=== PATIENT | female | born 1980 | race Two or more races ===

== ENCOUNTER 2016-12-12 14:55 | Emergency (ER) | payer OTHER ==
[~2016-12-12] VITALS: Ht 167.6 cm; Wt 54.4 kg
[~2016-12-12 14:55] MED LIST: NORCO 5-325 TA1 EACH ORAL
[2016-12-12] MEDS ORDERED: Lidocaine 1% MPF 10mg/ml 5ml IM ONE (16:15)
--- NOTE | 2016-12-12 16:15 | Emergency Room Report ---
History of Present Illness General Chief Complaint: Skin Rash/Abscess Source: Patient Present Illness HPI 36-year-old female presents to emergency Department complaining of 10/10 in severity left-sided hip pain, tenderness, swelling, erythema and increased temperature palpation x2 days. Patient reports recent injection heroin use at the site of her symptoms. Patient reports that she was recently seen in another ER for overdose of heroin. Patient denies nausea, vomiting, fevers, chills, chest pain, shortness of breath, dizziness or abdominal pain. 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 Pt states she is UTD with tetanus. Denies CP, Palpitations, LOC, AMS, dizziness, Changes in Vision, Sensation, paresthesias, or a sudden severe headache. Allergies: Coded Allergies: KETOROLAC (Unverified Allergy, Unknown, 06/05/15) PENICILLINS (Unverified Allergy, Unknown, 06/05/15) Patient History Past Medical History: see triage record Past Surgical History: none Pertinent Family History: none Social History: Reports: drug use - heroin Last Menstrual Period: 1999 Now: No Immunizations: UTD Reviewed Nursing Documentation: PMH: Agreed, PSxH: Agreed Nursing Documentation-PMH Past Medical History: No History, Except For Hx Cardiac Problems: Yes - ENDOCARDITIS Review of Systems All Other Systems: negative except mentioned in HPI Physical Exam Vital Signs Date Time Temp Pulse Resp B/P Pulse Ox O2 Delivery O2 Flow Rate FiO2 12/12/16 15:28 97.9 93 16 103/57 97 Room Air Sp02 EP Interpretation: reviewed, normal General Appearance: no apparent distress, alert, GCS 15, non-toxic Head: normocephalic, atraumatic Eyes: bilateral eye PERRL, bilateral eye normal inspection ENT: hearing grossly normal, normal pharynx, no angioedema, normal voice Neck: full range of motion, supple/symm/no masses Respiratory: chest non-tender, lungs clear, normal breath sounds, speaking full sentences Cardiovascular #1: regular rate, rhythm, no edema, normal capillary refill Gastrointestinal: normal bowel sounds, non tender, soft, no guarding, no rebound Rectal: deferred Genitourinary: normal inspection, no CVA tenderness Musculoskeletal: back normal, gait/station normal, normal range of motion, no calf tenderness, tender - 1.5cm fluctuant abscess to the left hip, with erythema , TTP, and increased temperature to palpation with surround erythema as well. Neurologic: alert, oriented x3, responsive, motor strength/tone normal, sensory intact, speech normal Psychiatric: judgement/insight normal, memory normal, no suicidal/homicidal ideation, anxious Skin: normal color, no rash, warm/dry, well hydrated, other - 1.5cm fluctuant abscess to the left hip, with erythema, TTP, and increased temperature to palpation with surround erythema as well. Lymphatic: no adenopathy Procedures Incision and Drainage Incision and Drainage : Consent: Verbal Site: left hip Blade Size: 11 I & D Procedure: betadine prep Wound Location: lower extremity - left hip Wound's Depth, Shape: superficial Wound Length (cm): 1 Wound Explored: contaminated - purulent d/c expressed Anesthesia: Lidocaine w/ Epi Volume Anesthetic (ccs): 3 Splint Applied?: No Sling Applied?: No Patient Tolerated: Well Complications: None Medical Decision Making PA Attestation Dr. Rodriguez is my supervising Physician whom patient management has been discussed with. Diagnostic Impression: Primary Impression: Cellulitis and abscess of trunk ER Course Pt. presents to the ED c/o pain, swelling, and erythema of abscess to the left hip x 2 days with Injection Heroin use. Ddx considered but are not limited to cellulitis, abscess, cystic acne, necrotizing fasciitis, insect bite. Vital signs: are WNL, pt. is afebrile non-tachycardic H&PE are most consistent with left hip and abscess ORDERS: none required at this time, the diagnosis is clinical ED INTERVENTIONS: -I & D. - Bacitracin and sterile dressing is applied. d/w pt. to take oral abx, and to return to ED with any worsening or new symptoms. DISCHARGE: At this time pt. is stable for d/c to home. Will provide printed patient care instructions, and any necessary prescriptions. Care plan and follow up instructions have been discussed with the patient prior to discharge. Last Vital Signs Date Time Temp Pulse Resp B/P Pulse Ox O2 Delivery O2 Flow Rate FiO2 12/12/16 15:28 97.9 93 16 103/57 97 Room Air Disposition: HOME, SELF-CARE Condition: Stable Scripts Acetaminophen* (TYLENOL EXTRA STRENGTH*) 500 Mg Tablet 500 MG ORAL Q8H, #30 TAB 0 Refills Prov: Cyndy Santos 12/12/16 Trimethoprim/Sulfamethoxazole 160/800* (BACTRIM DS TABLET*) 1 Each Tablet 1 TAB ORAL TWICE A DAY for 7 Days, #14 TAB Prov: Cyndy Santos 12/12/16 Cephalexin* (KEFLEX*) 500 Mg Capsule 500 MG ORAL EVERY 12 HOURS for 7 Days, #14 CAP 0 Refills Prov: Cyndy aSntos 12/12/16 Patient Instructions: Abscess Additional Instructions: Take medications as directed. Follow up with PCP in 3-5 days Return sooner to ED if new symptoms occur, or current symptoms become worse. - Please note that this Emergency Department Report was dictated using [employer] technology software, occasionally this can lead to erroneous entry secondary to interpretation by the dictation equipment. Cyndy Santos Dec 12, 2016 16:15
[2016-12-12] MEDS ORDERED: CEPHALEXIN500 MG ORAL (17:20)
[2016-12-12] MEDS ORDERED: BACTRIM DS TAB1 EAC1 ORAL (17:20)
[2016-12-12] MEDS ORDERED: TYLENOL EXTRA500 MG ORAL (17:21)
[2016-12-12 17:23] VITALS: BP 114/64
[2016-12-12 17:28] VITALS: BP 114/64
== END 2016-12-12 17:29 | disposition home or self-care (01) ==
LOC: EMR 15:40
DX: L02.416 Cutaneous abscess of left lower limb (principal); L03.116 Cellulitis of left lower limb; F11.10 Opioid abuse, uncomplicated; Z88.6 Allergy status to analgesic agent; Z88.0 Allergy status to penicillin
CPT/HCPCS: 10060